=== PATIENT | female | born 1940 | race Caucasian/White ===

== ENCOUNTER 2018-12-23 05:53 | Day surgery (SDC) | payer BC ==
[2018-12-23] MEDS ORDERED: SEVOFLURANE 15 MIN (07:00)
[2018-12-23] MEDS ORDERED: CEFAZOLIN 1 GM INJ (07:00)
[2018-12-23] MEDS ORDERED: FENTAnyl 50 MCG/ML VIAL (07:30)
[2018-12-23] MEDS ORDERED: PROPOFOL 20 ML (07:30)
[2018-12-23] MEDS ORDERED: MIDAZOLAM 1 MG/ML 2 ML INJ (07:30)
[2018-12-23] MEDS ORDERED: morphine (1 MG/ML) 10ML SYRINGE IV (08:00)
[2018-12-23] MEDS ORDERED: ALBUTEROL 0.083% (NEB) 2.5 MG/3 ML AMP HHN (08:00)
[2018-12-23] MEDS ORDERED: FENTAnyl 50 MCG/ML VIAL IV (08:00)
[2018-12-23] MEDS ORDERED: DIPHENHYDRAMINE 50 MG INJ IV (08:00)
[2018-12-23] MEDS ORDERED: MEPERIDINE 25 MG INJ IV (08:00)
[2018-12-23] MEDS ORDERED: LABETALOL HCL 20MG INJ IV (08:00)
[2018-12-23] MEDS ORDERED: METOCLOPRAMIDE 10 MG INJ IV (08:00)
[2018-12-23] MEDS ORDERED: PHENYLephrine 10 MG INJ (08:03)
[2018-12-23] MEDS ORDERED: GLYCOPYRROLATE 0.4 MG INJ (08:03)
[2018-12-23] MEDS ORDERED: METOCLOPRAMIDE 10 MG INJ (08:56)
[2018-12-23] MEDS ORDERED: ONDANSETRON 4 MG INJ (08:56)
[2018-12-23] MEDS: BUPIVACAINE 0.5% (SDV) 30 ML INJ (09:12)
[2018-12-23] MEDS: POLYMYXIN/BACITRACIN 1L IRRIG (09:12)
[2018-12-23] MEDS: HYDROmorphONE 1 MG/5 ML IV SYRINGE IV (09:48)
[2018-12-23] MEDS: KETOROLAC 15 MG INJ IV (09:49)
[2018-12-23] MEDS: hydrALAzine 20 MG INJ IV (09:50)
[2018-12-23] MEDS: ONDANSETRON 4 MG INJ IV (09:51)
== END 2018-12-23 11:08 | disposition home or self-care (01) ==
LOC: SDS 05:53
DX: M21.612 Bunion of left foot (principal); E66.01 Morbid (severe) obesity due to excess calories; Z68.35 Body mass index [BMI] 35.0-35.9, adult; I10 Essential (primary) hypertension
CPT/HCPCS: 28296; 73630-LT; 88304; 88311